=== PATIENT | female | born 1950 | race Caucasian/White ===

== ENCOUNTER 2018-02-01 07:09 | Emergency (ER) | payer MEDICARE, BC ==
[~2018-02-01] VITALS: Ht 165.1 cm; Wt 78.0 kg
[2018-02-01] MEDS ORDERED: SODIUM CHLORIDE FLUSH 10ML SYR IVF ONE (07:30)
[2018-02-01] MEDS ORDERED: ONDANSETRON 2MG/ML, 2ML ONE (07:42)
[2018-02-01] MEDS ORDERED: HYDROmorphone 2 MG/ML, 1ML ONE (07:43)
[2018-02-01] MEDS ORDERED: ONDANSETRON 2MG/ML, 2ML IVPush ONE (08:00)
[2018-02-01] MEDS ORDERED: HYDROmorphone 1 MG/ML, 1ML IVPush PRN (08:00)
[2018-02-01] MEDS ORDERED: HYDR25TA6 PO (08:08)
[2018-02-01] MEDS ORDERED: FLUT12AE INH (08:08)
[2018-02-01] MEDS ORDERED: FLUT100D INH (08:08)
[2018-02-01] MEDS ORDERED: OXYB10TA PO (08:08)
[2018-02-01] MEDS ORDERED: DAPA10TA PO (08:08)
[2018-02-01] MEDS ORDERED: GLIM2TAB2 PO (08:08)
[2018-02-01] MEDS ORDERED: LEVO137T2 PO (08:08)
[2018-02-01] MEDS ORDERED: METF10003 PO (08:08)
[2018-02-01] MEDS ORDERED: ROSU40TA PO (08:08)
[2018-02-01] MEDS ORDERED: ESCI20TA10 PO (08:08)
[2018-02-01 08:16] LABS: BASOPHILS # (AUTO) 0.02 x10^3/uL (0-0.1); BASOPHILS % (AUTO) 1 % (0-1); EOSINOPHILS % (AUTO) 3 % (1-7); LYMPHOCYTES # (AUTO) 0.94 x10^3/uL (1-3.4); LYMPHOCYTES % (AUTO) 30 % (22-44); MD NO; MEAN CORPUSCULAR HEMOGLOBIN 29.9 pg (27.0-34.8); MEAN CORPUSCULAR HGB CONC 33.1 g/dL (32.4-35.8); MEAN CORPUSCULAR VOLUME 90.1 fL (80-100); MEAN PLATELET VOLUME 8.5 fL (7.4-10.4); MONOCYTES # (AUTO) 0.35 x10^3/uL (0.2-0.8); MONOCYTES % (AUTO) 11 % (2-9); NEUTROPHILS # (AUTO) 1.68 x10^3/uL (1.8-6.8); NEUTROPHILS % (AUTO) 55 % (42-75); PLATELET COUNT 239 x10^3/uL (130-400); RED BLOOD COUNT 4.32 x10^6/uL (3.82-5.3); RED CELL DISTRIBUTION WIDTH 15.6 % (9.6-15.2)
[2018-02-01 08:21] LABS: INTERNATIONAL NORMALIZED RATIO 0.97 (0.93-1.1)
[2018-02-01 08:26] LABS: ALANINE AMINOTRANSFERASE 15 U/L (12-78); ALBUMIN 3.1 g/dL (3.4-5.0); ANION GAP 12 mmol/L (5-15); CALCIUM 8.8 mg/dL (8.5-10.1); CHLORIDE 104 mmol/L (98-107); CREATININE 0.73 mg/dL (0.55-1.02)
[2018-02-01 08:31] LABS: ALKALINE PHOSPHATASE 52 U/L (45-117); BILIRUBIN,TOTAL 0.7 mg/dL (0.2-1.0); TOTAL PROTEIN 7.5 g/dL (6.4-8.2); TROPONIN I < 0.015 ng/mL (0.000-0.045)
[2018-02-01] MEDS ORDERED: OMNIPAQUE 350 MG/ML, 100ML BOTTLE ONE (08:52)
[2018-02-01] MEDS ORDERED: POTASSIUM CHLORIDE 20 MEQ TAB.ER.PRT PO ONE (09:30)
[2018-02-01] MEDS ORDERED: POTASSIUM CHLORIDE 20 MEQ TAB.ER.PRT ONE (10:15)
[2018-02-01 10:26] LABS: MICROSCOPIC NOT IND
[2018-02-01 10:29] LABS: CULTURE INDICATED? NO
[2018-02-01] MEDS ORDERED: ONDANSETRON ODT 4 MG PO ONE (12:00)
[2018-02-01 12:31] VITALS: BP 127/78
== END 2018-02-01 12:35 | disposition home or self-care (01) ==
LOC: ED 08:40
DX: R09.1 Pleurisy (principal); R07.89 Other chest pain
CPT/HCPCS: 36415; 71045; 71275; 76700; 80053; 81003; 83690; 84484; 85025; 85610; 93005; 96374; 96375; 99285; J1170; J2405; Q9967

== ENCOUNTER → 2019-10-08 | Outpatient (CLI) | payer MEDICARE, BC ==
[~2019-10-08] MED LIST: DAPA10TA PO; ESCI20TA10 PO; FLUT100D INH; FLUT12AE INH; GLIM2TAB7 PO; HYDR25TA6 PO; LEVO137T2 PO; METF10007 PO; OXYB10TA26 PO; ROSU40TA PO
== END | disposition home or self-care (01) ==
LOC: CFH 13:19
PROVIDERS: ATTEND Internal Medicine Cardiovascular Disease
DX: I10 Essential (primary) hypertension (principal); R55 Syncope and collapse; R07.89 Other chest pain
CPT/HCPCS: 93306

== ENCOUNTER → 2020-01-28 | Outpatient (CLI) | payer MEDICARE, BC | END | disposition home or self-care (01) | LOC: CVU 12:52 | PROVIDERS: ATTEND Internal Medicine Cardiovascular Disease | DX: I65.23 Occlusion and stenosis of bilateral carotid arteries (principal); I10 Essential (primary) hypertension; E11.9 Type 2 diabetes mellitus without complications | CPT/HCPCS: 93880 ==